=== PATIENT | female | born 1995 | race Asian ===

== ENCOUNTER 2017-11-16 23:45 | Emergency (ER) | payer OTHER ==
--- NOTE | 2017-11-17 00:14 | ED ---
Substance Abuse/Use - HPI Summary HPI Summary: 22 year old F BIB EMS to [facility] complains of ETOH intoxication since one hour ago. Symptoms aggravated by nothing. Symptoms alleviated by nothing. EMS reports that patient was drinking with her friends who were concerned that patient was too intoxicated. Patient is not vomiting. She is awake and answering questions appropriately. - History Of Current Complaint Chief Complaint: EDSubstanceAbuse Stated Complaint: ETOH Time Seen by Provider: 11/16/17 23:50 Hx Obtained From: Patient, EMS Aggravating Factor(s): Nothing Alleviating Factor(s): Nothing Associated Signs And Symptoms: Negative - vomiting - Allergies/Home Medications Allergies/Adverse Reactions: Allergies Allergy/AdvReac Type Severity Reaction Status Date / Time No Known Allergies Allergy Verified 11/17/17 00:07 Home Medications: Home Medications NK [No Home Medications Reported] 11/17/17 [History Confirmed 11/17/17] PMH/Surg Hx/FS Hx/Imm Hx Previously Healthy: Yes Endocrine/Hematology History: Denies: Hx Diabetes Cardiovascular History: Denies: Hx Hypertension - Surgical History Surgery Procedure, Year, and Place: none Infectious Disease History: No Infectious Disease History: Denies: Traveled Outside the [place] in Last 30 Days - Family History Known Family History: Negative: Blood Disorder - Social History Alcohol Use: Occasionally Hx Substance Use: No Substance Use Type: Reports: None Hx Tobacco Use: No Smoking Status (MU): Never Smoked Tobacco Review of Systems Negative: Vomiting Neurological: Other - awake and answering questions appropriately Psychological: Other - ETOH intoxication All Other Systems Reviewed And Are Negative: Yes Physical Exam - Summary Physical Exam Summary: Appearance: Well-appearing, Well-nourished, lying in bed comfortable Skin: Warm, dry, no obvious rash Eyes: sclera anicteric, no conjunctival pallor ENT: mucous membranes moist Neck: deferred Respiratory: No signs of respiratory distress Cardiovascular: Appears well perfused, pulses are nml Abdomen: deferred Musculoskeletal: Moving all 4 extremities without obvious discomfort Neurological: The patient is intoxicated but he is alert, awake and oriented. She is responding to questions. Psychiatric: affect is normal, does not appear anxious or depressed Triage Information Reviewed: Yes Vital Signs On Initial Exam: Initial Vitals Pulse BP Pulse Ox 73 95/53 98 11/16/17 23:49 11/16/17 23:49 11/16/17 23:49 Vital Signs Reviewed: Yes Diagnostics - Vital Signs Vital Signs Temp Pulse Resp BP Pulse Ox 11/17/17 00:03 97.6 F 83 16 95/53 99 11/17/17 00:00 74 98 11/16/17 23:51 76 98 11/16/17 23:49 73 95/53 98 - Laboratory Lab Statement: Any lab studies that have been ordered have been reviewed, and results considered in the medical decision making process. Course/Dx - Diagnoses Provider Diagnoses: Alcohol abuse Discharge - Sign-Out/Discharge Documenting (check all that apply): Patient Departure - Discharge - Discharge Plan Condition: Improved Disposition: HOME Patient Education Materials: Alcohol Intoxication (ED), Abuse of Alcohol (ED) Referrals: [facility] [Outside] - Billing Disposition and Condition Condition: IMPROVED Disposition: Home - Attestation Statements Document Initiated by Scribe: Yes Documenting Scribe: Teresa Martinez Provider For Whom Meetae is Documenting (Include Credential): Lucien Shelby MD Scribe Attestation: Teresa Grimm, scribed for Lucien Shelby MD on 11/18/17 at 0215. Scribe Documentation Reviewed: Yes Provider Attestation: The documentation as recorded by the Teresa kirk accurately reflects the service I personally performed and the decisions made by me, Lucien Shelby MD
[2017-11-17 06:36] VITALS: BP 110/72
== END 2017-11-17 06:37 | disposition home or self-care (01) ==
LOC: ED 23:45
DX: F10.129 Alcohol abuse with intoxication, unspecified (principal)
CPT/HCPCS: 99283